=== PATIENT | female | born 1955 | race Caucasian/White ===

== ENCOUNTER 2016-05-05 12:42 | Emergency (ER) ==
[2016-05-05 12:50] VITALS: BP 136/68
[2016-05-05] MEDS ORDERED: NITROGLYCERIN SL PRN (12:58)
[2016-05-05] MEDS ORDERED: ASPIRIN PO STA (12:58)
[2016-05-05 13:08] LABS: MANUAL DIFF NEEDED? NO
[2016-05-05 13:12] LABS: BASO% 0.5 % (0.0-0.8); EOS# 0.47 X1000 (0.0-0.7); EOS% 3.3 % (0.0-10.0); HEMATOCRIT 42.4 % (37.0-47.0); HEMOGLOBIN 13.5 g/dL (12.0-16.0); IMM GRAN# 0.04 X1000 (0.0-0.04); IMM GRAN% 0.3 % (0.0-0.5); LYMPH# 4.59 X1000 (1.2-3.4); LYMPH% 32.5 % (20.5-51.1); MCH 29.7 PG (27-31); MCHC 31.8 g/dL (33-37); MCV 93.2 FL (81-99); MONO# 1.02 X1000 (0.11-0.59); MONO% 7.2 % (1.7-9.3); MPV 10.1 FL (7.4-10.4); NEUT% 56.2 % (42.2-75.2); PLT 292 X1000 (130-400); RBC 4.55 XMIL (4.2-5.4)
[2016-05-05 13:22] LABS: INR 1.02; PROTIME 10.7 Seconds (9.2-11.7); PTT 27.8 Seconds (22.0-36.0)
[2016-05-05 13:33] LABS: AGAP 13; ALBUMIN 3.5 g/dL (3.5-5.0); ALKALINE PHOSPHATASE 85 U/L (32-104); BUN 17 mg/dL (8-22); CALCIUM 9.1 mg/dL (8.8-10.2); CHLORIDE 109 mmol/L (98-107); CK PROFILE 94 U/L (24-173); COSMO 285; GOT 13 U/L (10-30); GPT 12 U/L (10-36); POTASSIUM 3.9 mmol/L (3.5-5.1); SODIUM 142 mmol/L (136-145); TCO2 20 mmol/L (25-35); TOTAL BILIRUBIN 0.21 mg/dL (0.20-1.00); TOTAL PROTEIN 7.6 g/dL (6.3-8.3)
--- NOTE | 2016-05-05 17:16 | PROVIDER DOCUMENTATION ---
HPI-General Adult - General Chief Complaint: Chest Pain Stated Complaint: CP,LEFT ARM PAIN Time Seen by Provider: 05/05/16 13:00 Source: patient Allergies/Adverse Reactions: Patient Allergies Allergy/AdvReac Type Severity Reaction Status Date / Time No Known Allergies Allergy Verified 12/02/14 06:23 Home Medications: Home Medication List Medication Instructions Recorded Confirmed Last Taken Type Alprazolam [Xanax] 1 mg PO TID 03/07/12 12/02/14 12/01/14 History Aripiprazole [Abilify] 15 mg PO QAM 03/07/12 12/02/14 12/01/14 History Omeprazole [Prilosec] 20 mg PO DAILY@0700 03/07/12 12/02/14 12/01/14 History Topiramate [Topamax] 100 mg PO TID 03/07/12 12/02/14 12/01/14 History Armodafinil [Nuvigil] 150 mg PO DAILY 12/02/14 12/02/14 12/01/14 History Diphenhydramine [Benadryl] 25 mg PO Q8HR #14 capsule 12/02/14 Unknown Rx Hydrocodone Bit/Acetaminophen 1 each PO BID PRN 12/02/14 12/02/14 Unknown History [Hydrocodon-Acetaminophen 5-325] Promethazine [Phenergan] 25 mg PO Q6H PRN PRN 12/02/14 12/02/14 Unknown History Tramadol HCl/Acetaminophen 1 each PO Q6HR PRN 12/02/14 12/02/14 Unknown History [Tramadol-Acetaminophn 37.5-325] - History of Present Illness -Gen Adult Nature of Presenting Problems: patient refused to be seen by the ED physician. Will see pcp tomorrow. Review of Systems - Adult - REVIEW OF SYSTEMS - ADULT ROS:: patient refused to be seen Constitutional: reports: other (patient refused to be seen) Past History - Adult - PAST MEDICAL HISTORY-ADULT Review of Records: reports: Nursing Assessment Review Major Childhood Illnesses: reports: denies history Cardiovascular: reports: denies history Respiratory: reports: denies history Gastrointestinal: reports: denies history Obstetrical/Gynecological: reports: denies history Genitourinary: reports: denies history Musculoskeletal: reports: chronic pain Neurological: reports: denies history Psychiatric: reports: anxiety, bipolar, schizophrenia Endocrine/Immune: reports: denies history Other Conditions: reports: denies history - PRIOR SURGERIES/PROCEDURES Surgical/Procedure History: reports: appendectomy, cholecystectomy, hysterectomy , other (left knee) - PRIOR HOSPITALIZATIONS Prior Hospitalizations: reports: none - IMMUNIZATION STATUS Childhood Immunizations: UTD - FAMILY HISTORY Family History: reviewed, not pertinent, diabetes Physical Exam-General - CONSTITUTIONAL General Appearance: appears well, alert, other (patient refused to be seen) Progress - PLAN OF CARE/RESULTS Progress/Plan/Lab Results: Dr Graham notified patient wants to leave, went into Triage room to see patient. patient sitting calm, comfortable with no apparent distress. patient refused to be seen by the ED physician and will follow up with primary doctor tomorrow. Departure - Departure Time of Disposition Order: 13:00 DIAGNOSIS: Patient left without being seen Disposition: LEFT WITHOUT BEING SEEN 07 Certified Medical Emergency: Emergent Condition: Good Referrals: Jose Alejandro Natarajan, [Primary Care Provider] - Attestation - Scribe Verification/Attestation Scribe:: Ney Parham ([facility]) Acting as Scribe for:: Tavo Gorman (request) Scribe documention review:: This chart was documented by a scribe and accurately reflects the service the provider performed and the decisions made by the provider. Physician Attestation - Physician Attestation I, the provider, attest to the following statement:: Tavo Gorman Physician documentation Attestation:: This documentation recorded by the scribe accurately reflects the service I personally performed and the decisions made by me.
--- NOTE | 2016-05-06 05:25 | EKG Report ---
Test Performed on : 05/05/2016 12:46:30 PM Test Reason : Chest Pain Blood Pressure : / mmHG Vent. Rate : 069 BPM Atrial Rate : 069 BPM P-R Int : 166 ms QRS Dur : 074 ms QT Int : 388 ms P-R-T Axes : 039 020 038 degrees QTc Int : 415 ms Normal sinus rhythm. Low voltage QRS Nonspecific ST and T wave abnormality Abnormal ECG When compared with ECG of 27-MAR-2014 07:13, No significant change was found Unconfirmed Result
== END 2016-05-05 13:03 | disposition left against medical advice (07) ==
LOC: ED 12:42
DX: R07.9 Chest pain, unspecified (principal); M79.602 Pain in left arm; Z53.21 Procedure and treatment not carried out due to patient leaving prior to being seen by health care provider
CPT/HCPCS: 80053; 82550; 83735; 83880; 84484; 85025; 85379; 85610; 85730; 93005